=== PATIENT | female | born 1970 | race Two or more races ===

== ENCOUNTER 2020-06-10 17:24 | Inpatient (IN) | payer MEDICAID ==
[~2020-06-10] VITALS: Ht 167.6 cm; Wt 75.7 kg
--- NOTE | 2020-06-10 17:38 | NUR ---
Recieved pt from triage walking in c/o sob and elevated temp 101f and take tylenol 3hr pt tested COVID POSTIVE LAST WEEK DINESES ANY HX OF MEDICALE PROBLEM OR AANY ROTINE MEDICATION AWAKE AND ALERT walking with stady gait
[2020-06-10] MEDS ORDERED: AZIT250T PO (17:42)
[2020-06-10] MEDS ORDERED: BENZONATATE 100 MG CAPSULE PO ONE (18:00)
--- NOTE | 2020-06-10 18:00 | NUR ---
INSERTED ANGO CATH # [id number] ON RT AC BLOOD DROW AND BC X2 SENT TO LAB
[2020-06-10 18:26] LABS: BASOPHILS % (AUTO) 0.8 % (0.0-2.0); EOSINOPHILS % (AUTO) 0.4 % (0.0-7.0); HEMATOCRIT 42.2 % (31.2-41.9); LYMPHOCYTES % (AUTO) 17.2 % (20.5-51.5); MEAN CORPUSCULAR HEMOGLOBIN 29.6 uug (24.7-32.8); MEAN CORPUSCULAR HGB CONC 33 g/dL (32.3-35.6); MEAN CORPUSCULAR VOLUME 89.3 fL (75.5-95.3); MONOCYTES # (AUTO) 0.7 K/uL (2.0-10.0); MONOCYTES % (AUTO) 11.7 % (0.0-11.0); NEUTROPHILS # (AUTO) 4.1 K/uL (1.8-8.9); NEUTROPHILS % (AUTO) 69.9 % (38.5-71.5); PLATELET COUNT (AUTO) 217 K/uL (179-408); RED BLOOD CELL COUNT(AUTO) 4.73 MIL/uL (3.63-4.92); WHITE BLOOD COUNT (AUTO) 5.9 K/uL (3.8-11.8)
[2020-06-10 18:28] LABS: CREATININE 0.7 mg/dL (0.6-1.3); POTASSIUM 3.4 mmol/L (3.5-5.1)
[2020-06-10 18:41] LABS: BILIRUBIN,TOTAL 0.5 mg/dL (0.2-1.0); TOTAL PROTEIN, SERUM 7.6 g/dL (6.4-8.2)
[2020-06-10] MEDS ORDERED: BENZONATATE 100 MG CAPSULE ONE ×2 (18:53→18:58)
[2020-06-10] MEDS: ALBUTEROL SULFATE 8 GM HFA.AER.AD IH PRN ×2 (19:04→19:18)
[2020-06-10] MEDS ORDERED: DOXYCYCLINE HYCLATE 100 MG TABLET PO ONE (19:15)
[2020-06-10] MEDS ORDERED: DOXYCYCLINE HYCLATE 100 MG TABLET ONE (19:15)
--- NOTE | 2020-06-10 19:24 | NUR ---
Pt currently using bed moreira; ABG to done when pt is available
--- NOTE | 2020-06-10 19:28 | NUR ---
seen by DR. MEHUL DANIELS WAS GIVEN pt coughing and congestion off o2 plan abg on room air @ hob elevated 30@ ivf NS 0.9 1 LITER INFUSED AND PATENT HAND OFF TO JOSE MEADE RN
[2020-06-10 19:39] LABS: ABG BASE EXCESS -1.3 mmol/L; ABG HCO3 21.7 mmol/L; ABG PCO2 31.7 mmHg (35.0-45.0); ABG PH 7.454 (7.350-7.450); ABG PO2 71.3 mmHg (75.0-100.0); ABG SITE RIGHT RADIAL; ABG TOTAL HEMOGLOBIN 13.2 G/dL (12.0-16.0); MetHb 0.1 % (0.0-1.5); O2Hb 93.9 % (94.0-97.0); VENT MODE Room Air
[2020-06-10] MEDS ORDERED: DEXAMETHASONE SOD PHOSPHATE 4 MG INJ IV ONE (20:00)
--- NOTE | 2020-06-10 20:29 | NUR ---
Recieved patient in 2verified name,date of ID band applied. Speech clear infull 8 10 word sentences . Menstration x 4 days today heavy. Reports maliase.Temproal temp @ 99.2 F. BP103/74, pulse 101. Resp20. RAC SL dry intact.Able to change position 1 x lite covering applied as requested.
--- NOTE | 2020-06-10 21:22 | NUR ---
Called [facility] to page Dr. De Los Santos.
--- NOTE | 2020-06-10 21:50 | NUR ---
Dr. Lee on panel call with Dr. De Los Santos. Patient accepted for admission to [facility], diagnosis: covid pneumonia.
--- NOTE | 2020-06-10 22:03 | NUR ---
Patient nasal swab test x 3 each swab seprately labled taken to lab informed tech,acknolaged.
[2020-06-10] MEDS ORDERED: DEXAMETHASONE SOD PHOSPHATE 10 MG INJ ONE (22:32)
--- NOTE | 2020-06-10 22:41 | NUR ---
Medicated as directed. Instructed room received admit to Tele Dr Refugio Liu PNA. Call 2013 [facility] [employer] informed inhouse Noe test swabing done,positive results. Charge will have accepting RN call back for report.
--- NOTE | 2020-06-10 23:29 | NUR ---
Pt. admitted to 318 , under care of . Report to Yonis Thompson A,[id number] to make needs known.RAC SL dry intact. All belongings with patient. Belongs List completed
[2020-06-10] MEDS ORDERED: ACETAMINOPHEN 325 MG TABLET PO PRN (23:45)
[2020-06-10] MEDS ORDERED: ENOXAPARIN SODIUM 40 MG/0.4 ML DISP.SYRIN SQ ONE (23:45)
[2020-06-10] MEDS ORDERED: CEFTRIAXONE 1 G in IV DEXTROSE 5% 50 ML IV SCH (23:45)
[2020-06-10] MEDS ORDERED: ONDANSETRON 4 MG/2 ML VIAL IV PRN (23:45)
[2020-06-10] MEDS ORDERED: ALBUTEROL SULFATE 8 GM HFA.AER.AD IH PRN (23:45)
--- NOTE | 2020-06-10 23:59 | NUR ---
Report Robert MACKAY TELE 322.Pt. admitted to , under care of Dr De Los Santos Belongs List completed. All belongings with patient. RAC SL # 20 dry intact. Able to ambulate to bed from [facility].
--- NOTE | 2020-06-11 00:11 | NUR ---
Patient brought to Tele unit from Er via eliasrsidney accompanied by staff nurse with dx of deloris JAMA under .Patient awake ALOx4 with O2 at 2LPM via NC saturating at 98 %.Denies pain. No s/s of distress noted.Able to ambulates to bathroom.Voided well. Iv on right Ac 20g patent and intact. Administered IV ATB as ordered .No adverse reaction.Patient on isolation. Safety measures in place. Call light with in reach. Will continue to monitor.
[2020-06-11] MEDS ORDERED: CEFTRIAXONE /D5W 50ML IVPB **ER PYXIS IV ONE (00:37)
[2020-06-11 01:33] VITALS: BP 106/57
[2020-06-11 04:00] VITALS: BP 108/68
[2020-06-11 06:19] LABS: BASOPHILS % (AUTO) 0.2 % (0.0-2.0); HEMATOCRIT 38.4 % (31.2-41.9); HEMOGLOBIN 12.6 g/dL (10.9-14.3); LYMPHOCYTES # (AUTO) 0.6 K/uL (20.0-40.0); LYMPHOCYTES % (AUTO) 18.4 % (20.5-51.5); MEAN CORPUSCULAR HEMOGLOBIN 29.8 uug (24.7-32.8); MEAN CORPUSCULAR HGB CONC 33 g/dL (32.3-35.6); MEAN CORPUSCULAR VOLUME 90.9 fL (75.5-95.3); MONOCYTES # (AUTO) 0.1 K/uL (2.0-10.0); MONOCYTES % (AUTO) 4.3 % (0.0-11.0); NEUTROPHILS # (AUTO) 2.5 K/uL (1.8-8.9); NEUTROPHILS % (AUTO) 77.1 % (38.5-71.5); PLATELET COUNT (AUTO) 228 K/uL (179-408); RED BLOOD CELL COUNT(AUTO) 4.23 MIL/uL (3.63-4.92); WHITE BLOOD COUNT (AUTO) 3.3 K/uL (3.8-11.8)
[2020-06-11 06:30] LABS: CREATININE 0.7 mg/dL (0.6-1.3); POTASSIUM 4.2 mmol/L (3.5-5.1)
[2020-06-11 06:47] LABS: BILIRUBIN,TOTAL 0.4 mg/dL (0.2-1.0)
--- NOTE | 2020-06-11 07:30 | NUR ---
Received patient in bed, awake, alert and oriented times 4. Patient is on 2L of NC. No sign of distress noted. Patient denies any pain. IV access on the RAC, heplock. Safety precautions are in place. Will continue to monitor.
[2020-06-11] MEDS: CHOLECALCIFEROL 1,000 UNIT TABLET PO SCH (08:13)
[2020-06-11] MEDS: ZINC SULFATE 220 MG CAPSULE PO SCH (08:13)
[2020-06-11] MEDS ORDERED: DOXYCYCLINE HYCLATE IV 100 MG in IV DEXTROSE 5% 100 ML IV SCH (09:00)
[2020-06-11] MEDS ORDERED: DEXAMETHASONE SOD PHOSPHATE 4 MG INJ IV SCH (09:00)
[2020-06-11] MEDS: ASCORBIC ACID 500 MG TABLET PO SCH (09:47)
[2020-06-11 11:49] VITALS: BP 96/59
[2020-06-11] MEDS: BENZONATATE 100 MG CAPSULE PO SCH ×2 (14:31→21:17)
[2020-06-11 16:37] VITALS: BP 105/65
--- NOTE | 2020-06-11 18:30 | NUR ---
Patient complained of pain in her chest when she is coughing non stop. Gave inhaler and also Acetaminophen. Increase oxygen from 2L NC to 4L because patient O2 fell to 90%. Will continue to monitor.
--- NOTE | 2020-06-11 19:07 | NUR ---
Patient is resting comfortably in bed now. Patient is now on 4L of oxygen NC. No sign of distress noted. All medications given as ordered. Will endorse to the oncoming nurse.
--- NOTE | 2020-06-11 20:16 | NUR ---
Received patient in bed awake ,alert x4 with O2 inhalation at 4 LPM [place] Nc .Denies pain.IV on Right Ac 20g patent and and intact.no s/s of infiltration.Due meds given.Continue on isolation precaution .Call light with in reach.VSS.
[2020-06-11 20:24] VITALS: BP 111/63
[2020-06-11] MEDS: ENOXAPARIN SODIUM 40 MG/0.4 ML DISP.SYRIN SQ SCH (20:51)
[2020-06-12 00:24] VITALS: BP 97/54
[2020-06-12] MEDS ORDERED: CEFTRIAXONE 1 G in IV DEXTROSE 5% 50 ML IV SCH (01:00)
[2020-06-12 04:21] VITALS: BP_SYST 101; BP_SYST 169; BP_DIAS 65; BP_DIAS 81
[2020-06-12] MEDS: BENZONATATE 100 MG CAPSULE PO SCH ×3 (06:04→22:20)
[2020-06-12] MEDS: PANTOPRAZOLE SODIUM 40 MG TABLET.DR PO SCH (06:04)
[2020-06-12 06:35] LABS: BASOPHILS # (AUTO) 0.1 K/uL (0.0-8.0); BASOPHILS % (AUTO) 0.6 % (0.0-2.0); HEMATOCRIT 35.8 % (31.2-41.9); HEMOGLOBIN 12.1 g/dL (10.9-14.3); LYMPHOCYTES # (AUTO) 1.5 K/uL (20.0-40.0); LYMPHOCYTES % (AUTO) 18.1 % (20.5-51.5); MEAN CORPUSCULAR HEMOGLOBIN 30.4 uug (24.7-32.8); MEAN CORPUSCULAR HGB CONC 34 g/dL (32.3-35.6); MEAN CORPUSCULAR VOLUME 90.4 fL (75.5-95.3); MONOCYTES # (AUTO) 0.9 K/uL (2.0-10.0); MONOCYTES % (AUTO) 10.6 % (0.0-11.0); NEUTROPHILS # (AUTO) 5.8 K/uL (1.8-8.9); NEUTROPHILS % (AUTO) 70.7 % (38.5-71.5); PLATELET COUNT (AUTO) 285 K/uL (179-408); RED BLOOD CELL COUNT(AUTO) 3.96 MIL/uL (3.63-4.92); WHITE BLOOD COUNT (AUTO) 8.2 K/uL (3.8-11.8)
[2020-06-12 06:52] LABS: CREATININE 0.7 mg/dL (0.6-1.3); PHOSPHOROUS 2.8 mg/dL (2.5-4.9)
--- NOTE | 2020-06-12 07:59 | NUR ---
Patient in bed awake and conversant. Denies pain. RAC IV line intact and patent. No resp distress. Bed kept low. Call placed within reach. Isolation precautions observed. Will continue to monitor.
[2020-06-12] MEDS: DEXAMETHASONE SOD PHOSPHATE 4 MG INJ IV SCH (08:58)
[2020-06-12] MEDS: ASCORBIC ACID 500 MG TABLET PO SCH (08:59)
[2020-06-12] MEDS: CHOLECALCIFEROL 1,000 UNIT TABLET PO SCH (08:59)
[2020-06-12] MEDS: ZINC SULFATE 220 MG CAPSULE PO SCH (08:59)
[2020-06-12 12:00] VITALS: BP 99/59
[2020-06-12 16:00] VITALS: BP 103/64
--- NOTE | 2020-06-12 18:54 | NUR ---
Patient alert and responsive. On 4 Lpm via nc. O2 saturation noted 94%. No respiratory distress noted. No sob noted. Denies pain or discomfort. Due meds given and tolerated. No nausea or vomiting noted. Kept comfortable. Call light within reach. Will continue to monitor.
--- NOTE | 2020-06-12 20:20 | NUR ---
Patient awake,alert and able to make needs known. O2 on 4Lpm via nasal cannular. No SOB noted . Due medications given. Safety measures in place : call light with reach ; bed in low position and locked
[2020-06-12 20:21] VITALS: BP 102/51
[2020-06-12] MEDS: ENOXAPARIN SODIUM 40 MG/0.4 ML DISP.SYRIN SQ SCH (22:19)
[2020-06-13 00:12] VITALS: BP 100/69
--- NOTE | 2020-06-13 02:45 | NUR ---
P.t in bed lying comfortably. A/O x3 denies any pain and discomfort. On 4L O2 via nasal canula, breath sounds is even and unlabored. P.t was seen and assessed by Dr. Garcia noted. Remains stable with no changes. Call light within reach. Safety measures rendered.
[2020-06-13 04:18] VITALS: BP 99/62
[2020-06-13] MEDS: BENZONATATE 100 MG CAPSULE PO SCH ×3 (06:37→21:09)
[2020-06-13] MEDS: PANTOPRAZOLE SODIUM 40 MG TABLET.DR PO SCH (06:38)
--- NOTE | 2020-06-13 07:04 | NUR ---
Patient rested through the night . No signs of distress noted. All scheduled medications given . Safety measures in place .
--- NOTE | 2020-06-13 08:00 | NUR ---
Received p.t in bed resting comfortably, arousable to tactile and verbal stimuli. no facial grimacing and acute distress noted. Breathing is even and unlabored on continues O2 4L via nasal canula, no episode of SOB. Call light within reach.
[2020-06-13] MEDS: ZINC SULFATE 220 MG CAPSULE PO SCH (09:29)
[2020-06-13] MEDS: ASCORBIC ACID 500 MG TABLET PO SCH (09:29)
[2020-06-13] MEDS: CHOLECALCIFEROL 1,000 UNIT TABLET PO SCH (09:29)
[2020-06-13] MEDS: DEXAMETHASONE SOD PHOSPHATE 4 MG INJ IV SCH (09:31)
[2020-06-13 12:24] VITALS: BP 85/41
[2020-06-13 16:07] VITALS: BP 90/48
--- NOTE | 2020-06-13 18:40 | NUR ---
Patient is comfortably watching T.V in bed. Breath sounds are even and unlabored, on continues O2 4LPM via nasal canula saturating at 95%. P.t was seen by MD bb shot packer and hospitalist . Denies any pain and discomfort. Compliant with most aspect of care. All due meds were taken as ordered. All needs are attended. Will endorse to next shift. Call light is within reach.
--- NOTE | 2020-06-13 20:00 | NUR ---
Received pt in bed, awake, A&Ox4, able to make needs known. No s/s of acute respiratory distress. No pain or discomfort reported. Safety measures in place. Call alvarez within reach. Will continue to monitor.
[2020-06-13 20:28] VITALS: BP 99/62
[2020-06-13] MEDS: DOCUSATE SODIUM 100 MG CAPSULE PO SCH (21:00)
[2020-06-13] MEDS ORDERED: BISACODYL 5 MG TABLET.DR PO PRN (21:00)
[2020-06-13] MEDS: ENOXAPARIN SODIUM 40 MG/0.4 ML DISP.SYRIN SQ SCH (21:09)
--- NOTE | 2020-06-13 21:24 | NUR ---
Pt.refused to take Colace 100 mg. requested to take medication in the morning.
[2020-06-13] MEDS ORDERED: CEFEPIME HCL 1 G VIAL ONE (22:13)
[2020-06-13] MEDS: CEFEPIME HCL 1 G in IV DEXTROSE 5% 50 ML IV SCH (22:21)
--- NOTE | 2020-06-13 22:55 | NUR ---
MRSA swab done. Specimen sent to lab.
[2020-06-14] VITALS: BP 105/60
[2020-06-14 04:24] VITALS: BP 106/79
[2020-06-14] MEDS: CEFEPIME HCL 1 G in IV DEXTROSE 5% 50 ML IV SCH ×3 (05:16→21:28)
[2020-06-14] MEDS: BENZONATATE 100 MG CAPSULE PO SCH ×3 (06:00→21:20)
[2020-06-14 06:03] LABS: BASOPHILS % (AUTO) 0.2 % (0.0-2.0); EOSINOPHILS % (AUTO) 0.1 % (0.0-7.0); HEMATOCRIT 33.6 % (31.2-41.9); HEMOGLOBIN 11.3 g/dL (10.9-14.3); LYMPHOCYTES # (AUTO) 2.1 K/uL (20.0-40.0); LYMPHOCYTES % (AUTO) 21.7 % (20.5-51.5); MEAN CORPUSCULAR HEMOGLOBIN 30.2 uug (24.7-32.8); MEAN CORPUSCULAR HGB CONC 34 g/dL (32.3-35.6); MEAN CORPUSCULAR VOLUME 89.9 fL (75.5-95.3); MONOCYTES # (AUTO) 0.7 K/uL (2.0-10.0); NEUTROPHILS # (AUTO) 6.9 K/uL (1.8-8.9); PLATELET COUNT (AUTO) 333 K/uL (179-408); RED BLOOD CELL COUNT(AUTO) 3.74 MIL/uL (3.63-4.92); WHITE BLOOD COUNT (AUTO) 9.7 K/uL (3.8-11.8)
[2020-06-14] MEDS: PANTOPRAZOLE SODIUM 40 MG TABLET.DR PO SCH (06:12)
[2020-06-14 06:36] LABS: CREATININE 0.7 mg/dL (0.6-1.3); MAGNESIUM 2.1 mg/dL (1.8-2.4); PHOSPHOROUS 3.2 mg/dL (2.5-4.9); POTASSIUM 4.1 mmol/L (3.5-5.1)
--- NOTE | 2020-06-14 07:08 | NUR ---
Pt slept through the night, able to make needs known, no s/s of respiratory distress, no pain or discomfort noted, comfort and safety provided, all needs attended.
--- NOTE | 2020-06-14 07:45 | NUR ---
Patient in bed comfortable. Alert and responsive. On 4lpm via nc saturating 96%. No respiratory distress. Denies pain or discomfort. Safety measures in place. Call light within reach. Will continue to monitor.
[2020-06-14] MEDS: DOCUSATE SODIUM 100 MG CAPSULE PO SCH ×2 (08:44→20:11)
[2020-06-14] MEDS: ZINC SULFATE 220 MG CAPSULE PO SCH (08:44)
[2020-06-14] MEDS: CHOLECALCIFEROL 1,000 UNIT TABLET PO SCH (08:44)
[2020-06-14] MEDS: DEXAMETHASONE SOD PHOSPHATE 4 MG INJ IV SCH (08:45)
[2020-06-14] MEDS: ASCORBIC ACID 500 MG TABLET PO SCH (08:45)
[2020-06-14 11:59] VITALS: BP 111/68
[2020-06-14 16:00] VITALS: BP 107/64
--- NOTE | 2020-06-14 19:30 | NUR ---
Pt received in bed, alert and awake. Denies pain or SOB. On 4L NC sating at 96%. Pt is SR on monitor. IV site is intact. No other issues or concerns at this time.
[2020-06-14] MEDS: ENOXAPARIN SODIUM 40 MG/0.4 ML DISP.SYRIN SQ SCH (20:17)
[2020-06-14 20:26] VITALS: BP 117/78
[2020-06-14] MEDS: TEMAZEPAM 15 MG CAPSULE PO PRN (21:20)
[2020-06-15 00:28] VITALS: BP 96/63
[2020-06-15 04:21] VITALS: BP 97/55
[2020-06-15] MEDS: CEFEPIME HCL 1 G in IV DEXTROSE 5% 50 ML IV SCH ×3 (05:59→21:45)
[2020-06-15] MEDS: PANTOPRAZOLE SODIUM 40 MG TABLET.DR PO SCH (06:00)
[2020-06-15] MEDS: BENZONATATE 100 MG CAPSULE PO SCH (06:00)
[2020-06-15 07:12] LABS: BASOPHILS % (AUTO) 0.4 % (0.0-2.0); EOSINOPHILS % (AUTO) 0.4 % (0.0-7.0); HEMATOCRIT 33.3 % (31.2-41.9); HEMOGLOBIN 11.1 g/dL (10.9-14.3); LYMPHOCYTES # (AUTO) 2.4 K/uL (20.0-40.0); LYMPHOCYTES % (AUTO) 26.3 % (20.5-51.5); MEAN CORPUSCULAR HEMOGLOBIN 30.3 uug (24.7-32.8); MEAN CORPUSCULAR HGB CONC 33 g/dL (32.3-35.6); MEAN CORPUSCULAR VOLUME 90.7 fL (75.5-95.3); MONOCYTES # (AUTO) 0.9 K/uL (2.0-10.0); MONOCYTES % (AUTO) 9.4 % (0.0-11.0); NEUTROPHILS # (AUTO) 5.8 K/uL (1.8-8.9); NEUTROPHILS % (AUTO) 63.5 % (38.5-71.5); PLATELET COUNT (AUTO) 364 K/uL (179-408); RED BLOOD CELL COUNT(AUTO) 3.67 MIL/uL (3.63-4.92); WHITE BLOOD COUNT (AUTO) 9.2 K/uL (3.8-11.8)
--- NOTE | 2020-06-15 07:30 | NUR ---
receive report on pt, resting in bed. awake alert and oriented x4. pt on 4L O2 via NC. Pt hand IV access on the right hand 22g TKO 3cc. Pt on tele monitor NSR, pt has bathroom privileges. Bed in low and locked position, isolation and safety precautions in place. Will continue to monitor.
[2020-06-15 07:44] LABS: CREATININE 0.7 mg/dL (0.6-1.3); PHOSPHOROUS 3.5 mg/dL (2.5-4.9); POTASSIUM 4.4 mmol/L (3.5-5.1)
[2020-06-15] MEDS: ASCORBIC ACID 500 MG TABLET PO SCH (08:58)
[2020-06-15] MEDS: DOCUSATE SODIUM 100 MG CAPSULE PO SCH ×2 (08:58→20:30)
[2020-06-15] MEDS: CHOLECALCIFEROL 1,000 UNIT TABLET PO SCH (08:58)
[2020-06-15] MEDS: ZINC SULFATE 220 MG CAPSULE PO SCH (08:58)
[2020-06-15] MEDS: DEXAMETHASONE SOD PHOSPHATE 4 MG INJ IV SCH (10:12)
--- NOTE | 2020-06-15 11:30 | NUR ---
Seen by physical therapy for daily activities, pt tolerated well, please see notes. Addendum: 06/15/20 at 1214 by MIGUEL AGUILAR RN disregard, documented on wrong pt
[2020-06-15 11:54] VITALS: BP 98/53
[2020-06-15 16:00] VITALS: BP 98/56
--- NOTE | 2020-06-15 18:42 | NUR ---
Pt resting in bed. Pt is A/O x4, tele monitor is NSR. Titrated pt from 4L to 3L O2 via NC saturating 96%, pt tolerating well, no signs of distress noted. Pt on regular diet, BRP, all medication given as ordered. IV access on the left hand 22g TKO 3cc. Bed in low and locked position, Pt is COVID positive, safety and isolation precautions in place, call light within reach, all needs met this shift. Will endorse to oncoming nurse.
--- NOTE | 2020-06-15 19:30 | NUR ---
Pt received resting in bed, awake and alert. Denies pain or SOB. Pt is on 3L NC sating at 97%. Pt is SR on monitor. Denies chest pain. IV site is intact. No other issues or concerns at this time.
[2020-06-15 20:00] VITALS: BP 107/61
[2020-06-15] MEDS: ENOXAPARIN SODIUM 40 MG/0.4 ML DISP.SYRIN SQ SCH (20:30)
[2020-06-15] MEDS: TEMAZEPAM 15 MG CAPSULE PO PRN (20:48)
[2020-06-16 00:21] VITALS: BP 94/58
[2020-06-16 04:21] VITALS: BP 97/59
[2020-06-16] MEDS: CEFEPIME HCL 1 G in IV DEXTROSE 5% 50 ML IV SCH (05:48)
[2020-06-16] MEDS: PANTOPRAZOLE SODIUM 40 MG TABLET.DR PO SCH (06:17)
--- NOTE | 2020-06-16 07:30 | NUR ---
pt resting in bed, able to verbalize needs. NSR on tele monitor, A/O x4, pt on O2 via NC 2.5L at 96%. Pt IV access on the left hand 22g TKO at 3cc. pt has BRP, on regular diet. Bed in low and locked position, Isolation and safety precautions in place. Bed alarm within reach, fall precautions in place, will continue to monitor.
--- NOTE | 2020-06-16 07:30 | NUR ---
pt resting in bed, able to verbalize needs. NSR on tele monitor, A/O x4, pt on room air saturating at 100%. Pt IV access on the right hand 22g SL. Bed in low and locked position, Isolation and safety precautions in place. Bed alarm within reach, fall precautions in place, will continue to monitor. Addendum: 06/16/20 at 1258 by MIGUEL AGUILAR RN wrong pt, please disregard
[2020-06-16] MEDS: DOCUSATE SODIUM 100 MG CAPSULE PO SCH ×2 (09:18→20:01)
[2020-06-16] MEDS: CHOLECALCIFEROL 1,000 UNIT TABLET PO SCH (09:18)
[2020-06-16] MEDS: ZINC SULFATE 220 MG CAPSULE PO SCH (09:18)
[2020-06-16] MEDS: DEXAMETHASONE SOD PHOSPHATE 4 MG INJ IV SCH (09:18)
[2020-06-16] MEDS: ASCORBIC ACID 500 MG TABLET PO SCH (09:18)
--- NOTE | 2020-06-16 10:00 | NUR ---
took pt off O2 per MD order, will update MD about pt status. Will continue to monitor.
--- NOTE | 2020-06-16 11:00 | NUR ---
pt tolerated physical therapy well, per PT: pt was saturating at 97% then after walking pt saturated at 94%. Pt had no signs of shortness of breath, but was lightheaded. Please see PT notes.
[2020-06-16] MEDS: DEXAMETHASONE 4 MG TABLET PO SCH (11:22)
[2020-06-16 11:55] VITALS: BP 105/64
[2020-06-16 16:00] VITALS: BP 108/67
--- NOTE | 2020-06-16 18:40 | NUR ---
pt resting in bed, A/Ox4, pt on room air saturating at 97%, no signs of distress noted. Incentive spirometer at bedside, pt aware of how to use it properly. Medications given as ordered, NSR on tele monitor. pt has steady gait, walks around room for exercise. Bed in low and locked position, isolation precautions in place, safety precautions in place, call light within reach, Will endorse to oncoming nurse.
[2020-06-16] MEDS: ENOXAPARIN SODIUM 40 MG/0.4 ML DISP.SYRIN SQ SCH (20:02)
[2020-06-16 20:22] VITALS: BP 116/65
[2020-06-16] MEDS: TEMAZEPAM 15 MG CAPSULE PO PRN (20:25)
--- NOTE | 2020-06-16 21:17 | NUR ---
Pt received sitting up in bed, awake. Denies pain or SOB. Pt is now on RA sating at 97% with no distress noted. Pt requested Restoril and medication was provided to patient, tolerated well. Bed is locked and in lowest position, call light is within reach. SR on monitor. No other issues or concerns at this time.
[2020-06-17 01:08] VITALS: BP 94/57
[2020-06-17 05:37] VITALS: BP 90/54
[2020-06-17] MEDS: PANTOPRAZOLE SODIUM 40 MG TABLET.DR PO SCH (06:20)
[2020-06-17 07:13] LABS: BASOPHILS % (AUTO) 0.1 % (0.0-2.0); EOSINOPHILS % (AUTO) 0.2 % (0.0-7.0); HEMATOCRIT 32.5 % (31.2-41.9); LYMPHOCYTES # (AUTO) 2.3 K/uL (20.0-40.0); LYMPHOCYTES % (AUTO) 22.1 % (20.5-51.5); MEAN CORPUSCULAR HEMOGLOBIN 30.3 uug (24.7-32.8); MEAN CORPUSCULAR HGB CONC 34 g/dL (32.3-35.6); MEAN CORPUSCULAR VOLUME 89.8 fL (75.5-95.3); MONOCYTES # (AUTO) 0.6 K/uL (2.0-10.0); MONOCYTES % (AUTO) 6.3 % (0.0-11.0); NEUTROPHILS # (AUTO) 7.3 K/uL (1.8-8.9); NEUTROPHILS % (AUTO) 71.3 % (38.5-71.5); PLATELET COUNT (AUTO) 439 K/uL (179-408); RED BLOOD CELL COUNT(AUTO) 3.62 MIL/uL (3.63-4.92); WHITE BLOOD COUNT (AUTO) 10.2 K/uL (3.8-11.8)
[2020-06-17 07:28] LABS: CREATININE 0.6 mg/dL (0.6-1.3); MAGNESIUM 2.1 mg/dL (1.8-2.4); PHOSPHOROUS 3.6 mg/dL (2.5-4.9); POTASSIUM 4.3 mmol/L (3.5-5.1)
--- NOTE | 2020-06-17 07:30 | NUR ---
received report on pt. pt awake resting in bed talking on the phone, A/Ox4, on room air saturating at 98%, no sign of distress, no reports of pain at this time. SR on tele monitor, bed in low and locked position, call light within reach, bed alarm on. Isolation an safety precautions in place. Will continue to monitor.
[2020-06-17] MEDS ORDERED: DEXAMETHASONE 4 MG TABLET PO SCH (09:00)
[2020-06-17] MEDS: ZINC SULFATE 220 MG CAPSULE PO SCH (09:14)
[2020-06-17] MEDS: CHOLECALCIFEROL 1,000 UNIT TABLET PO SCH (09:14)
[2020-06-17] MEDS: DOCUSATE SODIUM 100 MG CAPSULE PO SCH (09:14)
[2020-06-17] MEDS: DEXAMETHASONE 4 MG TABLET PO SCH (09:15)
[2020-06-17 11:36] VITALS: BP 117/71
[2020-06-17] MEDS ORDERED: DEXA4TAB68 PO (14:33)
[2020-06-17] MEDS ORDERED: ASPI81TA31 PO (14:33)
[2020-06-17 16:00] VITALS: BP 113/74
--- NOTE | 2020-06-17 18:15 | NUR ---
Pt discharge from hospital via private car accompanied by RN. Pt left with all belongings, vitals WNL, BP 113/74, HR 88, O2 on room air 95%, temp 97.8, RR 18. Pt A/Ox4, no sign of distress, no reports of pain at this time. Pt has all discharge instructions and information packet.
== END 2020-06-17 18:15 | disposition home or self-care (01) | DRG 137 ==
LOC: ER 17:28 → TELE3 23:33
PROVIDERS: ADMIT Nurse Practitioner Family; ATTEND Internal Medicine
DX: U07.1 COVID-19 (principal); J96.01 Acute respiratory failure with hypoxia; J12.82 Pneumonia due to coronavirus disease 2019; E87.6 Hypokalemia; E87.1 Hypo-osmolality and hyponatremia; E66.9 Obesity, unspecified; K76.0 Fatty (change of) liver, not elsewhere classified; R74.01 Elevation of levels of liver transaminase levels; R07.89 Other chest pain; R73.03 Prediabetes; K59.00 Constipation, unspecified; Z82.49 Family history of ischemic heart disease and other diseases of the circulatory system
CPT/HCPCS: 36415; 36600; 70030-TC; 71045; 83605; 83615; 83735; 84100; 85025; 85730; 86140; 87040; 87077; 87400; 93005; G0378; J0692; J0696; J1100; J1650; J3490; J3535; J7040; J7050; J7060; J8540; U0003

== ENCOUNTER 2022-09-07 10:10 | Emergency (ER) | payer MEDICAID, OTHER ==
[~2022-09-07] VITALS: Ht 165.1 cm; Wt 81.6 kg
[~2022-09-07 10:10] MED LIST: ASPI81TA31 PO; DEXA4TAB68 PO
[2022-09-07] MEDS ORDERED: LOSA25TA27 PO (10:20)
--- NOTE | 2022-09-07 10:29 | NUR ---
[email or web address], medical screening exam in progress
[2022-09-07] MEDS ORDERED: ACETAMINOPHEN ES 500 MG TABLET PO ONE (10:45)
[2022-09-07] MEDS ORDERED: ACETAMINOPHEN ES 500 MG TABLET ONE (10:55)
[2022-09-07 11:03] LABS: HEMATOCRIT 26.3 % (31.2-41.9); MEAN CORPUSCULAR HEMOGLOBIN 23.2 uug (24.7-32.8); MEAN CORPUSCULAR VOLUME 75.3 fL (75.5-95.3); PLATELET COUNT (AUTO) 267 K/uL (179-408)
[2022-09-07 11:17] LABS: BILIRUBIN,DIRECT 0.1 mg/dL (0.0-0.2); BILIRUBIN,TOTAL 0.5 mg/dL (0.2-1.0); CREATININE 0.7 mg/dL (0.6-1.3); POTASSIUM 3.8 mmol/L (3.5-5.1); TOTAL PROTEIN, SERUM 6.7 g/dL (6.4-8.2)
[2022-09-07 11:19] LABS: *CLARITY,URINE CLOUDY (CLEAR); *COLOR,URINE RED (YELLOW)
[2022-09-07 11:22] LABS: *BLOOD, URINE 3+ (NEGATIVE); UGLUCOSE NEGATIVE (NEGATIVE)
[2022-09-07 11:23] LABS: *BILIRUBIN,URIN 2+ (NEGATIVE); *KETONES,URINE NEGATIVE (NEGATIVE); *UROBILINOGEN,URINE 0.2 E.U./dl (NORMAL)
[2022-09-07 11:24] LABS: *URINE HCG, QUAL NEGATIVE (NEGATIVE); LEUKOCYTE ESTERASE ,URINE 1+ (NEGATIVE); NITRITE, URINE NEGATIVE (NEGATIVE)
[2022-09-07 11:47] LABS: RBC,URINE 80-100 /HPF (0-3)
[2022-09-07 11:48] LABS: BACTERIA,URINE 0 /HPF (NONE SEEN); SQUAMOUS EPITHELIAL CELL,UR FEW /HPF (NONE SEEN); WBC,URINE 0-3 /HPF (0-3)
[2022-09-07 11:49] LABS: CALCIUM CARBONATE CRYSTALS,UR NONE SEEN /HPF (NONE SEEN); CALCIUM OXALATE CRYSTALS,UR NONE SEEN /HPF (NONE SEEN); CALCIUM PHOSPHATE CRYSTALS,UR NONE SEEN /HPF (NONE SEEN); COARSE GRANULAR CASTS,URINE NONE SEEN /LPF; CYSTINE CRYSTALS,URINE NONE SEEN /HPF (NONE SEEN); FATTY CASTS,URINE NONE SEEN /LPF (NONE SEEN); MUCUS,URINE FEW /LPF (0-FEW); RED BLOOD CELL CASTS,URINE NONE SEEN /LPF (NONE SEEN); SPERM,URINE NONE SEEN /HPF (NONE SEEN); TRICHOMONAS,URINE NONE SEEN /HPF (NONE SEEN); TRIPLE PHOSPHATE CRYSTAL,UR NONE SEEN /HPF (NONE SEEN); TYROSINE CRYSTAL,URINE NONE SEEN /HPF (NONE SEEN); URIC ACID CRYSTALS,URINE NONE SEEN /HPF (NONE SEEN); URINE AMORPHOUS PHOSPHATES NONE SEEN /HPF; URINE AMORPHOUS URATE NONE SEEN /HPF; WAXY CASTS,URINE NONE SEEN /LPF (NONE SEEN); YEAST,URINE NONE SEEN /HPF (NONE SEEN)
[2022-09-07] MEDS ORDERED: IBUPROFEN 800 MG TABLET PO ONE (12:45)
[2022-09-07] MEDS ORDERED: IBUPROFEN 800 MG TABLET ONE (13:07)
[2022-09-07] MEDS ORDERED: DOCU-141 PO (13:10)
[2022-09-07] MEDS ORDERED: FERR-68 PO (13:10)
[2022-09-07] MEDS ORDERED: LEVO1TAB PO (13:10)
[2022-09-07] MEDS ORDERED: IBUP-1953 PO (13:10)
--- NOTE | 2022-09-07 13:25 | NUR ---
Patient discharged to home by Dr Bertrand in stable condition with steady gait. Written and verbal after care instructions given. Patient verbalized understanding and compliance of instructions. Stressed follow up with cancer registry coordinator or return to ER for worsening s/s. All copies of the tests' results today were handed to patient.
[2022-09-07 13:26] VITALS: BP 130/80
== END 2022-09-07 13:24 | disposition home or self-care (01) ==
LOC: ER 10:10
DX: N92.0 Excessive and frequent menstruation with regular cycle (principal); D50.9 Iron deficiency anemia, unspecified; D25.9 Leiomyoma of uterus, unspecified; Z79.82 Long term (current) use of aspirin; Z79.899 Other long term (current) drug therapy
CPT/HCPCS: 36415; 76856; 84703; 85025; A4663; A9150

== ENCOUNTER 2022-09-16 19:01 | Inpatient (IN) | payer OTHER ==
[~2022-09-16] VITALS: Ht 165.1 cm; Wt 83.5 kg
[~2022-09-16 19:01] MED LIST changes: -ASPI81TA31 PO; -DEXA4TAB68 PO; +DOCU-141 PO; +FERR-68 PO; +IBUP-1953 PO; +LEVO1TAB PO; +LOSA25TA27 PO
[2022-09-16 20:03] LABS: *BILIRUBIN,URIN NEGATIVE (NEGATIVE); *BLOOD, URINE 3+ (NEGATIVE); *CLARITY,URINE CLOUDY (CLEAR); *COLOR,URINE Orange (YELLOW); *KETONES,URINE NEGATIVE (NEGATIVE); *UROBILINOGEN,URINE 0.2 E.U./dl (NORMAL); LEUKOCYTE ESTERASE ,URINE NEGATIVE (NEGATIVE); NITRITE, URINE NEGATIVE (NEGATIVE); UGLUCOSE NEGATIVE (NEGATIVE)
[2022-09-16 20:10] LABS: CREATININE 0.8 mg/dL (0.6-1.3); MEAN CORPUSCULAR HEMOGLOBIN 23.3 uug (24.7-32.8); MEAN CORPUSCULAR VOLUME 75.3 fL (75.5-95.3); PLATELET COUNT (AUTO) 358 K/uL (179-408); POTASSIUM 3.7 mmol/L (3.5-5.1)
[2022-09-16 20:12] LABS: WBC,URINE 0-3 /HPF (0-3)
[2022-09-16 20:13] LABS: *URINE HCG, QUAL NEGATIVE (NEGATIVE)
[2022-09-16 20:15] LABS: HEMATOCRIT 19.7 % (31.2-41.9)
[2022-09-16] MEDS ORDERED: KETOROLAC TROMETHAMINE 15 MG INJ ONE (20:26)
[2022-09-16] MEDS ORDERED: KETOROLAC TROMETHAMINE 15 MG INJ IVP ONE (20:30)
[2022-09-16] MEDS ORDERED: TRAN650T2 PO (22:32)
[2022-09-17] MEDS ORDERED: MORPHINE SULFATE 2 MG/1 ML DISP.SYRIN ONE (07:06)
[2022-09-17] MEDS ORDERED: ONDANSETRON 4 MG/2 ML VIAL ONE ×2 (07:07→17:54)
[2022-09-17] MEDS ORDERED: ONDANSETRON 4 MG/2 ML VIAL IV ONE (07:15)
[2022-09-17] MEDS ORDERED: MORPHINE SULFATE 2 MG/1 ML DISP.SYRIN IV ONE (07:15)
[2022-09-17 08:07] LABS: HEMATOCRIT 21.4 % (31.2-41.9); MEAN CORPUSCULAR HEMOGLOBIN 24.9 uug (24.7-32.8); MEAN CORPUSCULAR VOLUME 77.2 fL (75.5-95.3); PLATELET COUNT (AUTO) 283 K/uL (179-408)
[2022-09-17] MEDS ORDERED: ACETAMINOPHEN 325 MG TABLET PO PRN (10:15)
[2022-09-17] MEDS ORDERED: ONDANSETRON 4 MG/2 ML VIAL IV PRN (10:15)
[2022-09-17 10:32] LABS: HEMATOCRIT 21.3 % (31.2-41.9); MEAN CORPUSCULAR HEMOGLOBIN 24.8 uug (24.7-32.8); MEAN CORPUSCULAR VOLUME 76.9 fL (75.5-95.3); PLATELET COUNT (AUTO) 287 K/uL (179-408)
[2022-09-17 10:38] LABS: BILIRUBIN,TOTAL 0.3 mg/dL (0.2-1.0); CREATININE 0.7 mg/dL (0.6-1.3); MAGNESIUM 1.9 mg/dL (1.8-2.4); PHOSPHOROUS 3.2 mg/dL (2.5-4.9); POTASSIUM 4.3 mmol/L (3.5-5.1); TOTAL PROTEIN, SERUM 6.5 g/dL (6.4-8.2)
[2022-09-17] MEDS ORDERED: HYDROCODONE/APAP 5-325MG TABLET ONE ×2 (11:22→19:45)
[2022-09-17] MEDS: HYDROCODONE/APAP 5-325MG TABLET PO PRN ×2 (11:24→19:45)
[2022-09-17] MEDS ORDERED: TRANEXAMIC ACID 650 MG PO SCH (13:00)
[2022-09-17] MEDS: FERROUS SULFATE 325 MG TABEC PO SCH ×2 (13:38→23:22)
[2022-09-17 15:52] LABS: NEUTROPHILS % (MANUAL) 0 % (42-75)
[2022-09-17 18:05] LABS: BASOPHILS % (MANUAL) 2 % (0-2); EOSINOPHILS % (MANUAL) 5 % (0-8); LYMPHOCYTES % (MANUAL) 33 % (20-40); MONOCYTES % (MANUAL) 10 % (2-10); NEUTROPHILS % (MANUAL) 50 % (42-75)
[2022-09-17] MEDS ORDERED: DOCUSATE SODIUM 100 MG CAPSULE PO ONE (19:54)
[2022-09-17] MEDS: DOCUSATE SODIUM 100 MG CAPSULE PO SCH (19:55)
[2022-09-17 22:29] VITALS: BP 110/71
[2022-09-18] VITALS (7 sets, daily range): BP systolic 92–119; BP diastolic 52–73
[2022-09-18] MEDS: PANTOPRAZOLE SODIUM 40 MG TABLET.DR PO SCH (06:34)
[2022-09-18] MEDS: HYDROCODONE/APAP 5-325MG TABLET PO PRN ×3 (07:02→16:38)
[2022-09-18] MEDS: FERROUS SULFATE 325 MG TABEC PO SCH ×3 (10:14→17:00)
[2022-09-18] MEDS: DOCUSATE SODIUM 100 MG CAPSULE PO SCH ×2 (10:14→16:38)
[2022-09-18] MEDS ORDERED: HYDROCODONE/APAP 10-325 MG TABLET PO PRN (19:45)
[2022-09-19] MEDS: PANTOPRAZOLE SODIUM 40 MG TABLET.DR PO SCH (06:12)
[2022-09-19 06:18] VITALS: BP 93/48
[2022-09-19 07:01] LABS: HEMATOCRIT 26.6 % (31.2-41.9); MEAN CORPUSCULAR HEMOGLOBIN 26.4 uug (24.7-32.8); MEAN CORPUSCULAR VOLUME 80.4 fL (75.5-95.3); PLATELET COUNT (AUTO) 275 K/uL (179-408)
[2022-09-19 07:20] LABS: CREATININE 0.8 mg/dL (0.6-1.3); MAGNESIUM 2.1 mg/dL (1.8-2.4); PHOSPHOROUS 3.3 mg/dL (2.5-4.9); POTASSIUM 4.6 mmol/L (3.5-5.1)
[2022-09-19] MEDS ORDERED: HYDR-3972 PO (08:16)
[2022-09-19] MEDS ORDERED: ZOLP5TAB2 PO (08:16)
[2022-09-19] MEDS ORDERED: MEGE20TA4 PO ×2 (08:16→10:53)
[2022-09-19] MEDS: FERROUS SULFATE 325 MG TABEC PO SCH (09:36)
[2022-09-19] MEDS: DOCUSATE SODIUM 100 MG CAPSULE PO SCH (09:36)
[2022-09-19] MEDS ORDERED: HYDR-3980 PO (10:54)
== END 2022-09-19 10:45 | disposition home or self-care (01) | DRG 532 ==
LOC: ER 19:02 → TRANSITION 09-17 09:00 → MED 09-17 21:12
PROVIDERS: ADMIT Internal Medicine; ATTEND Student in an Organized Health Care Education/Training Program
PROC: 30233N1 Transfusion of Nonautologous Red Blood Cells into Peripheral Vein, Percutaneous Approach (ICD-10-PCS; principal; 2022-09-17)
DX: N92.4 Excessive bleeding in the premenopausal period (principal); E44.0 Moderate protein-calorie malnutrition; D50.0 Iron deficiency anemia secondary to blood loss (chronic); I10 Essential (primary) hypertension; D25.0 Submucous leiomyoma of uterus
CPT/HCPCS: 36415; 70030-TC; 76856; 83735; 84100; 84703; 85025; 85730; 86850; 86900; 86901; 86920; A4663; G0378; J1885; J2270; J2405; J7040; P9016

== ENCOUNTER 2023-12-09 13:00 | Inpatient (IN) | payer OTHER ==
[~2023-12-09] VITALS: Ht 165.1 cm; Wt 83.9 kg
[~2023-12-09 13:00] MED LIST changes: -DOCU-141 PO; +HYDR-3980 PO; -IBUP-1953 PO; -LEVO1TAB PO; +MEGE20TA4 PO; +ZOLP5TAB2 PO
[2023-12-09 14:37] LABS: BASOPHILS % (AUTO) 0.6 % (0.0-2.0); DIFFERENTIAL COMMENT 0; EOSINOPHILS # (AUTO) 0.1 K/uL (0.0-0.7); EOSINOPHILS % (AUTO) 0.7 % (0.0-7.0); HEMATOCRIT 42.9 % (31.2-41.9); LYMPHOCYTES # (AUTO) 0.5 K/uL (0.8-4.8); LYMPHOCYTES % (AUTO) 6.8 % (20.5-51.5); MEAN CORPUSCULAR HEMOGLOBIN 28.9 uug (24.7-32.8); MEAN CORPUSCULAR HGB CONC 33 g/dL (32.3-35.6); MEAN CORPUSCULAR VOLUME 88.5 fL (75.5-95.3); MONOCYTES # (AUTO) 0.6 K/uL (0.1-1.30); MONOCYTES % (AUTO) 8.8 % (0.0-11.0); NEUTROPHILS # (AUTO) 6.1 K/uL (1.8-8.9); NEUTROPHILS % (AUTO) 83.1 % (38.5-71.5); PLATELET COUNT (AUTO) 213 K/uL (179-408); RED BLOOD CELL COUNT(AUTO) 4.85 MIL/uL (3.63-4.92); RED CELL DISTRIBUTION WIDTH 15.8 % (12.3-17.7); WHITE BLOOD COUNT (AUTO) 7.4 K/uL (3.8-11.8)
[2023-12-09 14:47] LABS: CALCIUM 9.1 mg/dL (8.5-10.1); CREATININE 0.7 mg/dL (0.6-1.3); POTASSIUM 3.9 mmol/L (3.5-5.1)
[2023-12-09 14:51] LABS: *BILIRUBIN,URIN NEGATIVE (NEGATIVE); *BLOOD, URINE 1+ (NEGATIVE); *CLARITY,URINE CLEAR (CLEAR); *COLOR,URINE YELLOW (YELLOW); *KETONES,URINE NEGATIVE (NEGATIVE); *PROTEIN,URINE NEGATIVE (NEGATIVE); *UROBILINOGEN,URINE 0.2 E.U./dl (NORMAL); LEUKOCYTE ESTERASE ,URINE NEGATIVE (NEGATIVE); NITRITE, URINE NEGATIVE (NEGATIVE); UGLUCOSE NEGATIVE (NEGATIVE)
[2023-12-09 14:52] LABS: ALBUMIN 3.8 g/dL (3.4-5.0)
[2023-12-09] MEDS: IV NS 1000 ML 1,000 ML IV ONE ×2 (15:10→18:02)
[2023-12-09] MEDS ORDERED: OXYCODONE/APAP 5-325 MG TABLET ONE ×2 (15:21→18:01)
[2023-12-09] MEDS: OXYCODONE/APAP 5-325 MG TABLET PO ONE ×2 (15:24→18:02)
[2023-12-09] MEDS ORDERED: CHOLECALCIFEROL 1,000 UNIT TABLET ONE ×3 (16:37→17:08)
[2023-12-09] MEDS: CHOLECALCIFEROL 1,000 UNIT TABLET PO SCH (16:38)
[2023-12-09 17:14] LABS: RBC,URINE 0-3 /HPF (0-3); WBC,URINE 0-3 /HPF (0-3)
[2023-12-09] MEDS ORDERED: HYDROMORPHONE 1 MG/1 ML DISP.SYRIN IV ONE (17:15)
[2023-12-09] MEDS ORDERED: ONDANSETRON 4 MG/2 ML VIAL ONE (18:01)
[2023-12-09] MEDS: ONDANSETRON 4 MG/2 ML VIAL IV ONE (18:02)
[2023-12-09] MEDS: methylPREDNISolone SOD SUCC 125 MG/2 ML VIAL IV SCH (23:00)
[2023-12-09] MEDS: DOXYCYCLINE HYCLATE 100 MG TABLET PO SCH (23:01)
[2023-12-09 23:37] VITALS: BP 105/69; TEMP 98.7; O2SAT 100
[2023-12-10 05:02] VITALS: BP 95/55; TEMP 99; O2SAT 96
[2023-12-10] MEDS: PANTOPRAZOLE SODIUM 40 MG TABLET.DR PO SCH (06:24)
[2023-12-10 07:46] LABS: BASOPHILS % (AUTO) 0.4 % (0.0-2.0); HEMATOCRIT 39.8 % (31.2-41.9); LYMPHOCYTES # (AUTO) 0.5 K/uL (0.8-4.8); LYMPHOCYTES % (AUTO) 12.4 % (20.5-51.5); MEAN CORPUSCULAR HGB CONC 33 g/dL (32.3-35.6); MONOCYTES # (AUTO) 0.1 K/uL (0.1-1.30); NEUTROPHILS # (AUTO) 3.5 K/uL (1.8-8.9); NEUTROPHILS % (AUTO) 85.2 % (38.5-71.5); PLATELET COUNT (AUTO) 186 K/uL (179-408); RED BLOOD CELL COUNT(AUTO) 4.48 MIL/uL (3.63-4.92); RED CELL DISTRIBUTION WIDTH 15.6 % (12.3-17.7); WHITE BLOOD COUNT (AUTO) 4.1 K/uL (3.8-11.8)
[2023-12-10 07:59] LABS: CALCIUM 8.7 mg/dL (8.5-10.1); CREATININE 0.6 mg/dL (0.6-1.3); MAGNESIUM 1.9 mg/dL (1.8-2.4); PHOSPHOROUS 2.8 mg/dL (2.5-4.9); POTASSIUM 4.1 mmol/L (3.5-5.1)
[2023-12-10 08:00] VITALS: BP_SYST 105; BP_SYST 109; BP_DIAS 62; BP_DIAS 68; TEMP 97.9; TEMP 98.6; O2SAT 94; O2SAT 95
[2023-12-10 08:09] LABS: DIFFERENTIAL COMMENT 1
[2023-12-10] MEDS ORDERED: ACETAMINOPHEN 325 MG TABLET-SA PATIENTS-PAIN ONLY PO PRN (11:15)
[2023-12-10] MEDS ORDERED: ACETAMINOPHEN 325 MG TABLET PO PRN (11:30)
[2023-12-10] MEDS ORDERED: PRED20TA PO (12:16)
[2023-12-10] MEDS ORDERED: paxlovid PO (12:19)
[2023-12-10 15:01] VITALS: BP 100/55; TEMP 98.5; O2SAT 95
== END 2023-12-10 16:20 | disposition home or self-care (01) | DRG 137 ==
LOC: ER 13:00 → TELE3 20:53
DX: U07.1 COVID-19 (principal); D50.9 Iron deficiency anemia, unspecified; R00.0 Tachycardia, unspecified; Z90.710 Acquired absence of both cervix and uterus; I10 Essential (primary) hypertension; Z79.899 Other long term (current) drug therapy
CPT/HCPCS: 36415; 71045; 83550; 83735; 84100; 85025; 87040; 93005; G0378; J2405; J2919; J7040